=== PATIENT | female | born 1965 | race Caucasian/White ===

== ENCOUNTER 2018-08-10 18:55 | Emergency (ER) | payer OTHER ==
--- NOTE | 2018-08-10 21:47 | ER Document Report ---
ED Fall - General Chief Complaint: Head Injury Stated Complaint: FALL/HEAD INJURY Time Seen by Provider: 08/10/18 21:10 Primary Care Provider: ALDA HAMLIN MD [Primary Care Provider] - Follow up as needed Mode of Arrival: Ambulatory Information source: Patient Notes: 52-year-old female presented to ED for complaint of pain to the back of her head and neck. She states that she has a history of night terrors and 2 nights ago she fell out of the bed during the night Janae hitting her head on a coffee table. She states she does not know she had a loss of consciousness because she was asleep when she fell out of the bed and she woke up on the floor. She denies any nausea vomiting confusion or any change in ambulation or weakness. She states her is a prior EMT and he came home and checked her out and everything was okay at the time but she is continued to have increase in pain. She states she has a history of breast augmentation topping took bilateral tubal ligation and neck surgery for degenerative disc disease. She states she is on chronic pain management from [facility] of 50 mcg of fentanyl gabapentin she thinks is 300 mg a day methocarbamol and Klonopin. TRAVEL OUTSIDE OF THE [place] IN LAST 30 DAYS: No - HPI Occurred: Other - 2 nights ago Where: Home, Indoors Context: denies: Fell from standing - Fell out of bed during the night terror hit a coffee table at the bedside Associated symptoms: None Location of injury/pain: Head, Neck Quality of pain: Achy, Sharp Severity: Moderate Pain Level: 3 - Related data Allergies/Adverse Reactions: latex Adverse Reaction (Mild, Verified 03/14/16 12:18) ITCHING,SWELLING AT SITE OF CONTACT Past Medical History - General Information source: Patient - Social History Smoking Status: Current Every Day Smoker Cigarette use (# per day): Yes - 6 cigarettes a day Chew tobacco use (# tins/day): No Smoking Education Provided: Yes - 4 minutes Frequency of alcohol use: None Drug Abuse: None Occupation: Licensed professional counselor Lives with: Family Family History: Reviewed & Not Pertinent Patient has suicidal ideation: No Patient has homicidal ideation: No - Past Medical History Cardiac Medical History: Reports: Hx Hypertension - HX OF,CAME OFF MEDICATION OVER TIME PER PT. Pulmonary Medical History: Reports: Hx Pneumonia - CHILD EENT Medical History: Reports: None Neurological Medical History: Reports: None Endocrine Medical History: Reports: None Renal/ Medical History: Reports: None Malignancy Medical History: Reports: None GI Medical History: Reports: None Musculoskeletal Medical History: Reports Hx Arthritis, Reports Hx Fibromyalgia, Reports Other - Chronic pain management for fibromyalgia and degenerative disc Skin Medical History: Reports None Psychiatric Medical History: Reports: Other - Night terrors Traumatic Medical History: Reports: None Infectious Medical History: Reports: None Past Surgical History: Reports: Hx Abdominal Surgery - "Tummy tuck ", Hx Breast Surgery - Breast augmentation, Hx Hysterectomy, Hx Orthopedic Surgery - Cervical degenerative disc disease repair, Hx Tubal Ligation - Immunizations Hx Diphtheria, Pertussis, Tetanus Vaccination: No Review of Systems - Review of Systems Constitutional: No symptoms reported EENT: No symptoms reported Cardiovascular: No symptoms reported Respiratory: No symptoms reported Gastrointestinal: No symptoms reported Genitourinary: No symptoms reported Female Genitourinary: No symptoms reported Musculoskeletal: Muscle pain, Neck pain Skin: No symptoms reported Hematologic/Lymphatic: No symptoms reported Neurological/Psychological: Headaches -: Yes All other systems reviewed and negative Physical Exam - Vital signs Vitals: Temp Pulse Resp BP Pulse Ox 98.4 F 94 18 170/90 H 96 08/10/18 19:08 08/10/18 19:08 08/10/18 19:08 08/10/18 19:08 08/10/18 19:08 Interpretation: Normal - General General appearance: Appears well, Alert - HEENT Head: Normocephalic, Atraumatic Eyes: Normal Pupils: PERRL Ears: Normal External canal: Normal Tympanic membrane: Normal Sinus: Normal Nasal: Normal Mouth/Lips: Normal Mucous membranes: Normal Pharynx: Normal Neck: Normal - Respiratory Respiratory status: No respiratory distress Chest status: Nontender Breath sounds: Normal Chest palpation: Normal - Cardiovascular Rhythm: Regular Heart sounds: Normal auscultation Murmur: No - Abdominal Inspection: Normal Distension: No distension Bowel sounds: Normal Tenderness: Nontender Organomegaly: No organomegaly - Back Back: Normal, Tender, Other - Previous cervical surgery. No: Deformity/step- off, CVA tenderness - Extremities General upper extremity: Normal inspection, Nontender, Normal color, Normal ROM, Normal temperature General lower extremity: Normal inspection, Nontender, Normal color, Normal ROM, Normal temperature, Normal weight bearing. No: Mirela's sign - Neurological Neuro grossly intact: Yes Cognition: Normal Orientation: AAOx4 Mell Coma Scale Eye Opening: Spontaneous Colo Coma Scale Verbal: Oriented Colo Coma Scale Motor: Obeys Commands Colo Coma Scale Total: 15 Speech: Normal Motor strength normal: LUE, RUE, LLE, RLE Sensory: Normal - Psychological Associated symptoms: Normal affect, Normal mood - Skin Skin Temperature: Warm Skin Moisture: Dry Skin Color: Normal Course - Re-evaluation Re-evalutation: 08/10/18 22:08 Discussed history and physical with Dr. Wilson. He stated recommended the CT of the head and neck due to her history and exam. CT of head and neck were ordered. He recommended no new medication as she is already on 50 mcg of fentanyl, gabapentin 300, methocarbamol, and Klonopin. - Vital Signs Vital signs: Temp Pulse Resp BP Pulse Ox 97.8 F 70 18 154/89 H 99 08/10/18 23:08 08/10/18 23:08 08/10/18 19:08 08/10/18 23:08 08/10/18 23:08 - Diagnostic Test Radiology reviewed: Image reviewed, Reports reviewed Discharge - Discharge Clinical Impression: Fall from bed, initial encounter, Degenerative disc disease, cervical Head injury Qualifiers: Encounter type: initial encounter Qualified Code(s): S09.90XA - Unspecified injury of head, initial encounter Condition: Stable Disposition: HOME, SELF-CARE Additional Instructions: HEAD INJURY PRECAUTIONS: At this point, there is no evidence that your head injury is serious. Observation is necessary, however. Take only clear liquids for the first few hours, unless told otherwise by the doctor. If no pain medication was prescribed, you may take acetaminophen according to the directions on the bottle. Do not take any medication that may alter your level of alertness (unless you've discussed it with the doctor first). Limit activity for the first 24 hours. Bed rest is best. During the first 24 hours, check to see approximately every two to three hours that the patient is easily arousable, responds normally, and can perform common tasks such as walking without difficulty. Contact your doctor or go to the hospital if any of the following things occur: Persistent vomiting, difficulty in arousing the patient, worsening or continued headache, or failure to improve as expected. Head injuries can cause symptoms that persist for a few days or even a few weeks. NECK INJURY (CERVICAL STRAIN): You have a neck strain. This is an injury to the muscles and ligaments in the neck. There is no evidence of a fracture of the neck bones. Also, no injury to the spinal cord or nerve roots was detected. Usually, stiffness and pain INCREASE for the first 24-48 hours after the injury. The pain will gradually resolve and the neck will become more mobile. Most patients are back at work or school within a few days. Typically, complete healing takes about two or three weeks. The usual initial treatment is rest and cold packs. A neck collar may be placed to keep the muscles of the neck at rest. Antiinflammatory and muscle relaxing medication are often used to reduce the spasm and irritation. You should call the doctor, or go to the hospital, if you develop numbness or weakness in any extremity, problems with your bladder or bowel, or pain radiating down the arms. CONTUSION: Your injury has resulted in a contusion -- a crushing of the deep tissues. No injury to important structures was detected during the physician's exam. Contusions vary in the amount of pain they cause, and in the length of time required for healing. Typically, the area will become bruised, and will remain painful to touch for two or three weeks. However, most patients are back to working and playing within a few days. After the initial period of rest and cold-packs, your symptoms (together with the doctor's recommendations) will determine how rapidly you can get back to full activity. Usually this means "do what feels okay, but don't do things that hurt." If re-examination was recommended, it's important to follow up as instructed. Call the doctor or return any time if pain increases, if swelling becomes severe, if you develop numbness or weakness in an injured extremity, or if any other alarming symptoms occur. USE OF TYLENOL (ACETAMINOPHEN): Acetaminophen may be taken for pain relief or fever control. It's much safer than aspirin, offering a wider range of "safe" dosages. It is safe during . Some brand names are Tylenol, Panadol, Datril, Anacin 3, Tempra, and Liquiprin. Acetaminophen can be repeated every four hours. The following are maximum recommended dosages: WEIGHT Dose Drops Elixir Chewa ble(80mg) (LBS.) drprs=droppers tsp=teaspoon 6 40 mg 0.4 ml (1/2) 6-11 80 mg 0.8 ml (full) tsp 1 tab 12-16 120 mg 1 1/2 drprs 3/4 tsp 1 1/2 tabs 17-23 160 mg 2 drprs 1 tsp 2 tabs 24-30 240 mg 3 drprs 1 1/2 tsp 3 tabs 30-35 320 mg 2 tsp 4 tabs 36-41 360 mg 2 1/4 tsp 4 1/2 tabs 42-47 400 mg 2 1/2 tsp 5 tabs 48-53 480 mg 3 tsp 6 tabs 54-59 520 mg 3 1/4 tsp 6 1/2 tabs 60-64 560 mg 3 1/2 tsp 7 tabs 65-70 600 mg 3 3/4 tsp 7 1/2 tabs 71-76 640 mg 4 tsp 8 tabs 77-82 720 mg 4 1/2 tsp 9 tabs 83-88 800 mg 5 tsp 10 tabs >89 pounds or adults 650 mg to 900 mg Acetaminophen can be repeated every four hours. Maximum dose not to exceed 4000 mg a day. These maximum recommended dosages are slightly higher than the dosages written on the product container, but these dosages are very safe and below the toxic dosage for acetaminophen. ICE PACKS: Apply ice packs frequently against the painful area. Many different schedules are recommended, such as "20 minutes on, 20 minutes off" or "one hour ice, two hours rest." If you need to work, you may need to go longer between ice treatments. You should plan to have the area ice packed AT LEAST one fourth of the time. The ice should be applied over the wrap, tape, or splint, or over a layer of cloth -- not directly against the skin. Some ice bags have a built-in cloth and can be put directly on the skin. WARM PACKS: After approximately two days, apply gentle heat (such as a heating pad or hot water bottle) for about 20 to 30 minutes about every two hours -- at least four times daily. Warmth and elevation will help you make a more rapid recovery, and will ease the pain considerably. Do not use HOT heat, and never apply heat for longer than 30 minutes. The continuous heat can invisibly damage skin and muscles -- even when no burn is seen on the surface. Damaged muscles can make you MORE sore. You are already on chronic pain management. Please continue with your current chronic pain management medications. Please follow-up with your chronic pain management doctor. I have given you a written report of your CT of the head and neck. There are no acute changes on either CAT scan. FOLLOW-UP CARE: If you have been referred to a physician for follow-up care, call the physicians office for an appointment as you were instructed or within the next two days. If you experience worsening or a significant change in your symptoms, notify the physician immediately or return to the Emergency Department at any time for re-evaluation. Forms: Elevated Blood Pressure, Smoking Cessation Education, Return to Work Referrals: ALDA HAMLIN MD [Primary Care Provider] - Follow up as needed
--- NOTE | 2018-08-10 22:43 | RADIOLOGY REPORT (SQ) ---
EXAM DESCRIPTION: CT CERVICAL SPINE WITHOUT IV CONTRAST COMPLETED DATE/TME: 08/10/2018 21:47 CLINICAL HISTORY: 52 years, Female, Fall 2 days ago with continued pain to head and ne COMPARISON: 06/09/2015 CT TECHNIQUE: 212 Images stored on PACS. All CT scanners at this facility use dose modulation, iterative reconstruction, and/or weight based dosing when appropriate to reduce radiation dose to as low as reasonably achievable (ALARA). [facility]: Dose Right [facility]: CareDose [facility]: Dose Right [facility]: Teradose 4D [facility]: [employer] LIMITATIONS: None. FINDINGS: Evaluation of spinal canal contents limited due to CT technique. Vertebral body height is preserved. Equivocal anterolisthesis of C2 with respect to C3, C3 with respect to C4, C4 with respect to C5. Findings are likely developmental. Postsurgical changes with fixation plates and screws at C5-6 and C6-7. Associated artifact. Height and alignment is otherwise preserved. No CT evidence for acute fracture or subluxation. Joint soft tissues are grossly unremarkable. Facet arthropathy and degenerative changes with osteophytic spurring C3-4, C4-5. IMPRESSION: No CT evidence for acute C-spine abnormality. Stable postsurgical and degenerative changes. TECHNICAL DOCUMENTATION: Quality ID # 436: Final reports with documentation of one or more dose reduction techniques (e.g., Automated exposure control, adjustment of the mA and/or kV according to patient size, use of iterative reconstruction technique) copyright 2011 [employer]- All Rights Reserved
--- NOTE | 2018-08-10 22:44 | RADIOLOGY REPORT (SQ) ---
EXAM DESCRIPTION: CT HEAD WITHOUT IV CONTRAST COMPLETED DATE/TME: 08/10/2018 21:47 CLINICAL HISTORY: 52 years, Female, Fall 2 days ago with continued pain to head and ne COMPARISON: None. TECHNIQUE: 190 Images stored on PACS. All CT scanners at this facility use dose modulation, iterative reconstruction, and/or weight based dosing when appropriate to reduce radiation dose to as low as reasonably achievable (ALARA). [facility]: Dose Right [facility]: CareDose [facility]: Dose Right [facility]: Teradose 4D [facility]: [employer] LIMITATIONS: None. FINDINGS: The globes are intact. The paranasal sinuses and mastoid air cells are unremarkable. No displaced or depressed skull fracture. No intra or extra-axial hemorrhage. CT is limited for evaluation of acute infarct. No CT evidence for large or territorial acute infarct. No mass or midline shift IMPRESSION: Negative exam TECHNICAL DOCUMENTATION: Quality ID # 436: Final reports with documentation of one or more dose reduction techniques (e.g., Automated exposure control, adjustment of the mA and/or kV according to patient size, use of iterative reconstruction technique) copyright 2011 [employer]- All Rights Reserved
[2018-08-10 23:14] VITALS: BP 154/89
== END 2018-08-10 23:17 | disposition home or self-care (01) ==
LOC: ER 18:55
DX: S09.90XA Unspecified injury of head, initial encounter (principal); W06.XXXA Fall from bed, initial encounter; M50.30 Other cervical disc degeneration, unspecified cervical region; F17.210 Nicotine dependence, cigarettes, uncomplicated; I10 Essential (primary) hypertension
CPT/HCPCS: 70450; 72125; 99283; 99406

== ENCOUNTER 2018-11-09 18:24 | Emergency (ER) | payer OTHER ==
[2018-11-09] MEDS ORDERED: ACETAMINOPHEN 325 MG TABLET PO ONE (19:31)
--- NOTE | 2018-11-09 19:33 | ER Document Report ---
ED Medical Screen (RME) - General Chief Complaint: Headache Stated Complaint: HEADACHE Time Seen by Provider: 11/09/18 19:25 Primary Care Provider: ALDA HAMLIN MD [Primary Care Provider] - Follow up as needed TRAVEL OUTSIDE OF THE [place] IN LAST 30 DAYS: No - HPI Notes: 11/09/18 19:31 Patient is a 53-year-old female with a history of chronic back pain, anxiety/depression, tummy tuck who presents to the emergency department complaining of frontal headache over the past few days in the setting of nasal congestion/discharge, dry cough, and epigastric pain. Patient states that her illness began 2 to 3 weeks ago and she was given penicillin at that time which seem to help, but her symptoms continued. Patient states that she still does have nasal congestion/discharge, but it is decreased from previous. She is eating and drinking without difficulty. She is urinating normally. She does take fentanyl for her chronic pain and is also on Klonopin. Denies injury, current fever, neck pain, URI, CP, SOB, n/v/d, or rash. I have treated and performed a rapid initial assessment of this patient. A comprehensive ED assessment and evaluation of the patient, analysis of test results and completion of medical decision making process will be conducted by additional ED providers. PHYSICAL EXAMINATION: GENERAL: Well-appearing, well-nourished and in no acute distress. A&Ox4. Answers questions appropriately. LUNGS: Breath sounds clear to auscultation bilaterally and equal. No wheezes rales or rhonchi. HEART: Regular rate and rhythm without murmurs, rubs, gallops. ABDOMEN: Soft, nondistended abdomen. No guarding, no rebound. Normal bowel sounds present. No CVA tenderness bilaterally. + mild epigastric tenderness (cannot elicit thorough abd exam w/o table, however). Extremities: No cyanosis, clubbing, or edema b/l. NEUROLOGICAL: Normal speech, normal gait. PSYCH: Normal mood, normal affect. - Related Data Allergies/Adverse Reactions: latex Adverse Reaction (Mild, Verified 11/09/18 18:30) ITCHING,SWELLING AT SITE OF CONTACT Past Medical History - Past Medical History Cardiac Medical History: Reports: Hx Hypertension - HX OF,CAME OFF MEDICATION OVER TIME PER PT. Denies: Hx Coronary Artery Disease, Hx Heart Attack Pulmonary Medical History: Reports: Hx Pneumonia - CHILD Denies: Hx Asthma, Hx Bronchitis, Hx COPD Neurological Medical History: Denies: Hx Cerebrovascular Accident, Hx Seizures Renal/ Medical History: Denies: Hx Peritoneal Dialysis Musculoskeltal Medical History: Reports Hx Arthritis, Reports Hx Fibromyalgia Past Surgical History: Reports: Hx Abdominal Surgery - "Tummy tuck ", Hx Breast Surgery - Breast augmentation, Hx Hysterectomy, Hx Orthopedic Surgery - Cervical degenerative disc disease repair, Hx Tubal Ligation - Immunizations Hx Diphtheria, Pertussis, Tetanus Vaccination: No Doctor's Discharge - Discharge Referrals: ALDA HAMLIN MD [Primary Care Provider] - Follow up as needed
--- NOTE | 2018-11-09 20:02 | RADIOLOGY REPORT (SQ) ---
EXAM DESCRIPTION: CHEST 2 VIEWS COMPLETED DATE/TIME: 11/09/2018 7:47 pm REASON FOR STUDY: cough COMPARISON: None. EXAM PARAMETERS: NUMBER OF VIEWS: two views TECHNIQUE: Digital Frontal and Lateral radiographic views of the chest acquired. RADIATION DOSE: NA LIMITATIONS: none FINDINGS: LUNGS AND PLEURA: No opacities, masses or pneumothorax. No pleural effusion. MEDIASTINUM AND HILAR STRUCTURES: No masses or contour abnormalities. HEART AND VASCULAR STRUCTURES: Heart normal size. No evidence for failure. BONES: No acute findings. HARDWARE: None in the chest. OTHER: No other significant finding. IMPRESSION: NO ACUTE RADIOGRAPHIC FINDING IN THE CHEST. TECHNICAL DOCUMENTATION: JOB ID: [id number] [place]-72 2010 [email or web address]- All Rights Reserved Reading location - IP/workstation name: [email or web address]
[2018-11-09 20:10] LABS: ABSOLUTE BASOPHILS # (AUTO) 0.1 10^3/uL (0.0-0.2); ABSOLUTE LYMPHOCYTES (AUTO) 3.1 10^3/uL (0.5-4.7); ABSOLUTE MONOCYTES (AUTO) 0.5 10^3/uL (0.1-1.4); ABSOLUTE NEUT (AUTO) 6.5 10^3/uL (1.7-8.2); BASOPHILS % (AUTO) 0.5 % (0-2); EOSINOPHILS % (AUTO) 0.5 % (0-6); HEMATOCRIT 47.2 % (36.0-47.0); HEMOGLOBIN 16.1 g/dL (12.0-15.5); LYMPHOCYTES % (AUTO) 30.4 % (13-45); MEAN CORPUSCULAR HEMOGLOBIN 28.1 pg (27.0-33.4); MEAN CORPUSCULAR VOLUME 83 fl (80-97); PLATELET COUNT 281 10^3/uL (150-450); RED BLOOD COUNT 5.71 10^6/uL (3.72-5.28); RED CELL DISTRIBUTION WIDTH 14.3 % (11.5-14.0); SEGMENTED NEUTROPHILS % (AUTO) 63.6 % (42-78); TOTAL CELLS COUNTED % (AUTO) 100 %; WHITE BLOOD COUNT 10.3 10^3/uL (4.0-10.5)
[2018-11-09 20:17] LABS: APPEARANCE,URINE SLIGHTLY-CLOUDY; BILIRUBIN,URINE NEGATIVE (NEGATIVE); COLOR,URINE YELLOW; GLUCOSE, URINE NEGATIVE (NEGATIVE); KETONES,URINE NEGATIVE (NEGATIVE); LEUKOCYTE ESTERASE,URINE NEGATIVE (NEGATIVE); NITRITE,URINE NEGATIVE (NEGATIVE); PROTEIN,URINE NEGATIVE (NEGATIVE); URINE SPECIFIC GRAVITY 1.021; UROBILINOGEN,URINE NEGATIVE mg/dL (<2.0)
[2018-11-09 20:26] LABS: ALANINE AMINOTRANSFERASE 34 U/L (9-52); ALBUMIN 4.6 g/dL (3.5-5.0); ALKALINE PHOSPHATASE 109 U/L (38-126); ANION GAP 12 (5-19); ASPARTATE AMINO TRANSFERASE 22 U/L (14-36); BILIRUBIN,DIRECT 0.3 mg/dL (0.0-0.4); BILIRUBIN,TOTAL 0.4 mg/dL (0.2-1.3); BLOOD UREA NITROGEN 17 mg/dL (7-20); CALCIUM 10.2 mg/dL (8.4-10.2); CARBON DIOXIDE 23 mmol/L (22-30); CHLORIDE 108 mmol/L (98-107); GLUCOSE 101 mg/dL (75-110); LIPASE 43.5 U/L (23-300); SODIUM 143.1 mmol/L (137-145); TOTAL PROTEIN 7.7 g/dL (6.3-8.2)
[2018-11-09] MEDS ORDERED: AMOXICILLIN TR/POT CLAVULANATE 500-125 MG TAB PO ONE (22:57)
--- NOTE | 2018-11-09 22:59 | ER Document Report ---
ED General - General Chief Complaint: Headache Stated Complaint: HEADACHE Time Seen by Provider: 11/09/18 19:25 Notes: Patient is a 53-year-old female presents with complaint of pressure over her frontal sinuses, congestion, intermittent fevers for several weeks. She says she initially took some penicillin which started to improve her symptoms but then came back. She denies history of seasonal allergies. No vomiting. No diarrhea. No difficulty breathing. No other complaints at this time. TRAVEL OUTSIDE OF THE [place] IN LAST 30 DAYS: No - Related Data Allergies/Adverse Reactions: latex Adverse Reaction (Mild, Verified 11/09/18 18:30) ITCHING,SWELLING AT SITE OF CONTACT Past Medical History - Social History Smoking Status: Never Smoker Chew tobacco use (# tins/day): No Frequency of alcohol use: None Drug Abuse: None Family History: Reviewed & Not Pertinent Patient has suicidal ideation: No Patient has homicidal ideation: No - Past Medical History Cardiac Medical History: Reports: Hx Hypertension - HX OF,CAME OFF MEDICATION OVER TIME PER PT. Denies: Hx Coronary Artery Disease, Hx Heart Attack Pulmonary Medical History: Reports: Hx Pneumonia - CHILD Denies: Hx Asthma, Hx Bronchitis, Hx COPD Neurological Medical History: Denies: Hx Cerebrovascular Accident, Hx Seizures Renal/ Medical History: Denies: Hx Peritoneal Dialysis Musculoskeletal Medical History: Reports Hx Arthritis, Reports Hx Fibromyalgia Past Surgical History: Reports: Hx Abdominal Surgery - "Tummy tuck ", Hx Breast Surgery - Breast augmentation, Hx Hysterectomy, Hx Orthopedic Surgery - Cervical degenerative disc disease repair, Hx Tubal Ligation - Immunizations Hx Diphtheria, Pertussis, Tetanus Vaccination: No Review of Systems - Review of Systems Notes: My Normal Review Basic REVIEW OF SYSTEMS: CONSTITUTIONAL : Denies fever, chills, or sweats. Denies recent illness. EENT: congestion and sinus pressure CARDIOVASCULAR: Denies chest pain. RESPIRATORY: Dry cough. Denies shortness of breath, difficulty breathing, or wheezing. GASTROINTESTINAL: Denies abdominal pain. Denies nausea, vomiting, or diarrhea. MUSCULOSKELETAL: Denies neck or back pain or joint pain or swelling. SKIN: Denies rash or skin lesions. NEUROLOGICAL: Denies altered mental status or loss of consciousness. Frontal headache. Denies weakness or paralysis or loss of use of either side. Denies problems with gait or speech. Denies sensory or motor loss. ALL OTHER SYSTEMS REVIEWED AND NEGATIVE. Physical Exam - Notes Notes: General Appearance: Well nourished, alert, cooperative, no acute distress, no obvious discomfort. Amount of audible congestion on exam. Vitals: reviewed, See vital signs table. Head: no swelling or tenderness to the head. Pressure over frontal sinuses Eyes: PERRL, EOMI, Conjuctiva clear Mouth: No decreasd moisture Throat: No tonsillar inflammation, No airway obstruction, No lymphadenopathy Neck: Supple, no neck tenderness, No neck swelling Lungs: No wheezing, No rales, No rhonci, No accessory muscle use, good air exchange bilaterally. Heart: Normal rate, Regular rythm, No murmur, no rub Abdomen: Normal BS, soft, No rigidity, No abdominal tenderness, No guarding, no rebound Extremities: strength 5/5 in all extremities, good pulses in all extremities, no edema. Skin: warm, dry, appropriate color, no rash Neuro: speech clear, oriented x 3, normal affect, responds appropriately to questions. Cranial nerves II through XII are intact. Patient moves all extremities without difficulty. No focal neurologic deficits on exam. Course - Re-evaluation Re-evalutation: 11/10/18 04:55 Suspect patient has sinusitis based on recurrent fevers and sinus pressure over the frontal sinuses for last 1 to [address] her on Augmentin. I encouraged her to also take dkas-imm-wvcvykd allergy medicine as we have had a high pollen count the spring and this could also be contributing to her congestion and pressure. I encouraged her to follow-up with a doctor in 1 week for reevaluation. She is to return to the ER if she has worsening of her symptoms. Patient agrees with plan will be discharged home. Dictation of this chart was performed using voice recognition software; therefore, there may be some unintended grammatical errors. - Laboratory Result Diagrams: 11/09/18 19:45 11/09/18 19:45 Laboratory results interpreted by me: 11/09/18 11/09/18 19:45 19:45 RBC 5.71 H Hgb 16.1 H Hct 47.2 H RDW 14.3 H Chloride 108 H Discharge - Discharge Clinical Impression: Sinusitis Qualifiers: Sinusitis location: unspecified location Chronicity: subacute Qualified Code(s): J01.90 - Acute sinusitis, unspecified URI (upper respiratory infection) Qualifiers: URI type: unspecified URI Qualified Code(s): J06.9 - Acute upper respiratory infection, unspecified Condition: Good Disposition: HOME, SELF-CARE Additional Instructions: Please take an epub-jur-wezbzof allergy medicine such as Ruth or Claritin. Please take the antibiotic as prescribed. This will help treat potential sinusitis. Please take Tylenol for pain. Please return to the ER or follow-up with your doctor in 1 week for reevaluation if your symptoms are not improving after being on the antibiotic. Please return to ER immediately if you have high fevers, vomiting, difficulty breathing, or feel that you are worsening in any way. Prescriptions: Amox Tr/Potassium Clavulanate [Augmentin 613-989 Tablet] 1 tab PO BID 7 Days tablet Forms: Return to Work
== END 2018-11-09 23:18 | disposition home or self-care (01) ==
LOC: ER 18:24
DX: J01.90 Acute sinusitis, unspecified (principal); J06.9 Acute upper respiratory infection, unspecified; I10 Essential (primary) hypertension
CPT/HCPCS: 36415; 71046; 80053; 81001; 83690; 85025; 99284

== ENCOUNTER 2020-01-16 15:12 | Emergency (ER) | payer OTHER ==
[2020-01-16] MEDS ORDERED: NORMAL SALINE 1000 ML 1,000 ML IV PRN (15:32)
[2020-01-16 16:22] LABS: ABSOLUTE BASOPHILS # (AUTO) 0.1 10^3/uL (0.0-0.2); ABSOLUTE EOSINOPHILS # (AUTO) 0.1 10^3/uL (0.0-0.6); ABSOLUTE LYMPHOCYTES (AUTO) 3.3 10^3/uL (0.5-4.7); ABSOLUTE MONOCYTES (AUTO) 0.5 10^3/uL (0.1-1.4); ABSOLUTE NEUT (AUTO) 4.5 10^3/uL (1.7-8.2); BASOPHILS % (AUTO) 0.8 % (0-2); EOSINOPHILS % (AUTO) 1.6 % (0-6); HEMOGLOBIN 15.8 g/dL (12.0-15.5); LYMPHOCYTES % (AUTO) 39.1 % (13-45); MEAN CORPUSCULAR HEMOGLOBIN 29.2 pg (27.0-33.4); MEAN CORPUSCULAR HGB CONC 33.7 g/dL (32.0-36.0); MEAN CORPUSCULAR VOLUME 87 fl (80-97); MONOCYTES % (AUTO) 5.6 % (3-13); PLATELET COUNT 221 10^3/uL (150-450); RED BLOOD COUNT 5.42 10^6/uL (3.72-5.28); RED CELL DISTRIBUTION WIDTH 13.7 % (11.5-14.0); SEGMENTED NEUTROPHILS % (AUTO) 52.9 % (42-78); TOTAL CELLS COUNTED % (AUTO) 100 %; WHITE BLOOD COUNT 8.5 10^3/uL (4.0-10.5)
[2020-01-16 16:41] LABS: ALBUMIN 4.5 g/dL (3.5-5.0); ALKALINE PHOSPHATASE 90 U/L (38-126); ANION GAP 7 (5-19); ASPARTATE AMINO TRANSFERASE 23 U/L (14-36); BILIRUBIN,TOTAL 0.6 mg/dL (0.2-1.3); BLOOD UREA NITROGEN 26 mg/dL (7-20); CALCIUM 9.6 mg/dL (8.4-10.2); CARBON DIOXIDE 22 mmol/L (22-30); CHLORIDE 109 mmol/L (98-107); GLUCOSE 100 mg/dL (75-110); TOTAL PROTEIN 7.2 g/dL (6.3-8.2)
--- NOTE | 2020-01-16 17:31 | RADIOLOGY REPORT (SQ) ---
EXAM DESCRIPTION: CT ABD/PELVIS WITH IV ONLY IMAGES COMPLETED DATE/TIME: 01/16/2020 4:15 pm REASON FOR STUDY: llq pain' . Diffuse abdominal pain. Prior appendectomy, hysterectomy, cholecyst ectomy. COMPARISON: None. TECHNIQUE: CT scan of the abdomen and pelvis performed using helical scanning technique with dynamic intravenous contrast injection. No oral contrast. Images reviewed with lung, soft tissue, and bone windows. Reconstructed coronal and sagittal MPR images reviewed. Delayed images for evaluation of the urinary system also acquired. All images stored on PACS. All CT scanners at this facility use dose modulation, iterative reconstruction, and/or weight based d osing when appropriate to reduce radiation dose to as low as reasonably achievable (ALARA). [facility]: Dose Right [facility]: CareDose [facility]: Dose Right [facility]: Teradose 4D [facility]: Oxsensis CONTRAST TYPE AND DOSE: contrast/concentration: Isovue 350.00 mmol/ml; Total Contrast Delivered: 99. 0 ml; Total Saline Delivered: 71.0 ml RENAL FUNCTION: GFR > 60. RADIATION DOSE: CT Rad equipment meets quality standard of care and radiation dose reduction techniq ues were employed. CTDIvol: 10.6 - 14.6 mGy. DLP: 1365 mGy-cm.. LIMITATIONS: None. FINDINGS: LOWER CHEST: No significant findings. No nodules or infiltrates. LIVER: The liver has normal size and contour. Background mild hepatic steatosis. There are several circumscribed hypodense lesions within the right and left hepatic lobes, demonstrating no significant enhancement on delayed images, consistent with benign hepatic cysts. No suspicious hepatic mass. H epatic and portal veins are patent. No biliary ductal dilation. SPLEEN: Normal size. No focal lesions. PANCREAS: No masses. No significant calcifications. No adjacent inflammation or peripancreatic fluid collections. Pancreatic duct not dilated. GALLBLADDER: Surgically absent. ADRENAL GLANDS: No significant masses or asymmetry. RIGHT KIDNEY AND URETER: No solid masses. No significant calcifications. No hydronephrosis or hyd roureter. LEFT KIDNEY AND URETER: No solid masses. 5 mm nonobstructing left inferior pole renal calculus. No obstructing renal or ureteral calculus. No hydronephrosis. No perinephric fluid. Ureter has jose e l caliber and appearance. AORTA AND VESSELS: No aneurysm. No dissection. Renal arteries, SMA, celiac without stenosis. RETROPERITONEUM: No retroperitoneal adenopathy, hemorrhage or masses. BOWEL AND PERITONEAL CAVITY: There is colonic diverticulosis without evidence of diverticulitis. No bowel obstruction. No bowel wall thickening. No significant inflammatory change. APPENDIX: Surgically absent. PELVIS: Post hysterectomy. Small left ovary or left seroma, insignificant. Calcified pelvic phlebol iths. Urinary bladder has normal contour. No adnexal mass. ABDOMINAL WALL: No masses. No hernias. BONES: No significant or acute findings. OTHER: No other significant finding. IMPRESSION: 1. No acute abnormality in the abdomen or pelvis to explain the patient's symptoms. 2. Colonic diverticulosis without evidence of diverticulitis. 3. Mild hepatic steatosis. Hepatic cysts. 4. 5 mm nonobstructing left renal calculus. No hydronephrosis. No obstructing renal or ureteral joey culi. TECHNICAL DOCUMENTATION: JOB ID: [id number] Quality ID # [id number]: Final reports with documentation of one or more dose reduction techniques (e.g., Au tomated exposure control, adjustment of the mA and/or kV according to patient size, use of iterative reconstruction technique) 2010 [employer]- All Rights Reserved Reading location - IP/workstation name: [email or web address]
--- NOTE | 2020-01-16 18:15 | ER Document Report ---
ED General - General Chief Complaint: Bloody Stools Stated Complaint: ABDOMINAL PAIN,BLOOD IN STOOL Time Seen by Provider: 01/16/20 15:29 Primary Care Provider: NILAM HAMLIN NP [Primary Care Provider] - Follow up as needed Notes: HPI: Patient is a 54-year-old female with past medical history as recorded presents today with 1 bowel movement with some blood noticed this morning. No bowel movement last evening and no bowel movement since that time. She did states some crampy left lower quadrant intermittent abdominal discomfort with no radiation. No aggravating relieving factors. No nausea, vomiting, fevers, or dysuria. Patient states she does have a history of internal hemorrhoids. Her last colonoscopy was around 5 years ago. She denies any lightheadedness or dizziness. ROS: See HPI All other review of systems reviewed and otherwise negative Reviewed vital signs and nursing note as charted by RN. PHYSICAL EXAM: CONSTITUTIONAL: Alert and oriented and responds appropriately to questions. Wel l-appearing; well-nourished HEAD: Normocephalic; atraumatic EYES: PERRL; sclerae non-icteric ENT: Normal nose; no rhinorrhea; moist mucous membranes; pharynx without lesions noted NECK: Supple without meningismus; non-tender; no cervical lymphadenopathy, no masses CARD: Regular rate and rhythm; no murmurs; symmetric distal pulses RESP: Normal chest excursion without splinting or tachypnea; breath sounds clear and equal bilaterally ABD: Normal bowel sounds; non-distended; soft, nontender to deep palpation of all 4 quadrants of the abdomen GI: With electric locomotive crane operator present I did perform a digital rectal examination. Some external nonthrombosed hemorrhoids. No gross blood. Very minimally positive Hemoccult stool BACK: The back appears normal and is non-tender to palpation EXT: Normal ROM in all joints; non-tender to palpation; no edema SKIN: No acute lesions noted NEURO: CN 2-12 intact; 5/5 bilateral upper and lower extremity strength with sensation intact to light touch PSYCH: The patient's mood and manner are appropriate. Grooming and personal hygiene are appropriate. TRAVEL OUTSIDE OF THE [place] IN LAST 30 DAYS: No - Related Data Allergies/Adverse Reactions: latex Adverse Reaction (Mild, Verified 01/16/20 15:52) ITCHING,SWELLING AT SITE OF CONTACT Past Medical History - Social History Smoking Status: Current Every Day Smoker Frequency of alcohol use: None Drug Abuse: None Family History: Reviewed & Not Pertinent Patient has homicidal ideation: No - Past Medical History Cardiac Medical History: Reports: Hx Hypertension Denies: Hx Coronary Artery Disease, Hx Heart Attack Pulmonary Medical History: Reports: Hx Pneumonia Denies: Hx Asthma, Hx Bronchitis, Hx COPD Neurological Medical History: Denies: Hx Cerebrovascular Accident, Hx Seizures Renal/ Medical History: Denies: Hx Peritoneal Dialysis Musculoskeletal Medical History: Reports Hx Arthritis, Reports Hx Fibromyalgia Past Surgical History: Reports: Hx Abdominal Surgery - "Tummy tuck ", Hx Breast Surgery - Breast augmentation, Hx Cholecystectomy - 2019, Hx Hysterectomy, Hx Orthopedic Surgery - Cervical degenerative disc disease repair, Hx Tubal Ligation - Immunizations Hx Diphtheria, Pertussis, Tetanus Vaccination: No Physical Exam - Vital signs Vitals: Temp Pulse Resp BP Pulse Ox 98.8 F 102 H 20 154/90 H 98 01/16/20 15:17 01/16/20 15:17 01/16/20 15:17 01/16/20 15:17 01/16/20 15:17 Course - Re-evaluation Re-evalutation: Given the history and physical examination, currently pain-free, vital signs as recorded, 1 bowel movement at 8 AM with no bowel movement subsequently, I will obtain a hemoglobin level, and basic labs, CT scan was ordered in triage. I would like to evaluate for the possibility of diverticulitis. I do believe with only 1 bowel movement earlier today with some external thrombosed hemorrhoids, with a history of internal hemorrhoids, an acute concerning GI bleed to be unlik jacobo. 01/16/20 18:13 Hemoglobin as recorded. No repeat bowel movements. Still pain-free. CT scan of the abdomen and pelvis as recorded. Given the above history and physical, with the above information, I believe it is reasonable to discharge the patient home at this time with strict return precautions and follow-up with a white goods appliance tech. Patient and are in agreement. - Vital Signs Vital signs: Temp Pulse Resp BP Pulse Ox 98.8 F 102 H 20 154/90 H 98 01/16/20 15:29 01/16/20 15:17 01/16/20 15:17 01/16/20 15:17 01/16/20 15:17 - Laboratory Result Diagrams: 01/16/20 16:08 01/16/20 16:08 Laboratory results interpreted by me: 01/16/20 01/16/20 16:08 16:08 RBC 5.42 H Hgb 15.8 H Chloride 109 H BUN 26 H Discharge - Discharge Clinical Impression: Blood in stool, Left lower quadrant abdominal pain Condition: Good Disposition: HOME, SELF-CARE Additional Instructions: Come back immediately for any increased pain, return of pain, the location of pain, repeat blood in the bowel movement, lightheadedness or dizziness, fevers, or any other acute problems. Please follow-up with the primary care physician and white goods appliance tech as we have provided. Referrals: NILAM HAMLIN NP [Primary Care Provider] - Follow up as needed MICHAEL VAZQUEZ MD [ACTIVE STAFF] - Follow up as needed
[2020-01-16 19:18] LABS: APPEARANCE,URINE CLEAR; BILIRUBIN,URINE NEGATIVE (NEGATIVE); COLOR,URINE STRAW; GLUCOSE, URINE NEGATIVE (NEGATIVE); KETONES,URINE NEGATIVE (NEGATIVE); LEUKOCYTE ESTERASE,URINE NEGATIVE (NEGATIVE); NITRITE,URINE NEGATIVE (NEGATIVE); PROTEIN,URINE NEGATIVE (NEGATIVE); UROBILINOGEN,URINE NEGATIVE mg/dL (<2.0)
[2020-01-16 19:25] VITALS: BP 130/67
[2020-01-16 19:30] LABS: URINE SPECIFIC GRAVITY > 1.060
== END 2020-01-16 19:26 | disposition home or self-care (01) ==
LOC: ER 15:12
DX: R19.5 Other fecal abnormalities (principal); R10.32 Left lower quadrant pain; I10 Essential (primary) hypertension
CPT/HCPCS: 99284; 96360; 36415; 83690; 85025; 80053; 81001; 84484; 74177; J7030

== ENCOUNTER 2020-02-28 07:15 | Day surgery (SDC) | payer OTHER ==
[2020-02-28] MEDS ORDERED: PROPOFOL INJ 200 MG/20 ML VIAL IV ONE (07:28)
--- NOTE | 2020-02-28 09:04 | Operative Report ---
Operative Report DATE OF SURGERY: 02/28/20 Operative Report: Risks benefits and alternatives of the procedure including risk of bleeding, perforation requiring surgery have been explained to the patient in detail and informed consent has been obtained. Patient is placed in a left, lateral decubital position. Timeout was called. Propofol medication is administered. Rectal examination is done which did not reveal any masses, tears or fissures. An Olympus videoscope was introduced into the patient's rectum. Scope was then carefully advanced all the way to the cecum. The cecum was identified by the usual anatomical landmarks including the ileocecal valve as well as the appendiceal office. Photodocumentation is obtained. Scope was then sequentially pulled back via the various segments of the colon including the ascending colon, hepatic flexure, transverse colon, splenic flexure, descending colon and finally into the rectosigmoid portions of the colon. Retroflexion maneuver is performed. PREOPERATIVE DIAGNOSIS: Blood in stool POSTOPERATIVE DIAGNOSIS: Internal and external hemorrhoids. Diverticulosis without any evidence of diverticulitis. Rectosigmoid colon polyp removed via biopsy forceps. Right hand colon inflammation status post biopsy rule out collagenous colitis OPERATION: Colonoscopy with biopsy SURGEON: MICHAEL VAZQUEZ ANESTHESIA: LMAC TISSUE REMOVED OR ALTERED: As noted above COMPLICATIONS: None. ESTIMATED BLOOD LOSS: None. INTRAOPERATIVE FINDINGS: As noted above PROCEDURE: Patient tolerated the procedure well. No immediate postprocedure complications are noted. Patient is discharged in good condition. Discharge date 02/28/2020. Discharge diet: Regular. Discharge activity: Regular. 2 to 3-week follow-up to discuss findings. Patient is instructed call the office or proceed to the emergency room should there be any further plans questions. Wait on the pathology. May need 5-year surveillance colonoscopy
[2020-02-28 09:42] VITALS: BP 119/80
== END 2020-02-28 10:05 | disposition home or self-care (01) ==
LOC: END 07:15
PROVIDERS: ATTEND Internal Medicine Gastroenterology
DX: K57.30 Diverticulosis of large intestine without perforation or abscess without bleeding (principal); K52.9 Noninfective gastroenteritis and colitis, unspecified; K63.5 Polyp of colon; K64.8 Other hemorrhoids; K64.4 Residual hemorrhoidal skin tags; F41.9 Anxiety disorder, unspecified; F32.9 Major depressive disorder, single episode, unspecified; Z83.79 Family history of other diseases of the digestive system; Z90.49 Acquired absence of other specified parts of digestive tract; Z98.51 Tubal ligation status; Z90.710 Acquired absence of both cervix and uterus; Z78.0 Asymptomatic menopausal state; Z79.899 Other long term (current) drug therapy
CPT/HCPCS: 45380; 88305 ×2; 00811; J2704; 811

== ENCOUNTER 2020-04-15 18:43 | Emergency (ER) | payer OTHER ==
[2020-04-15] MEDS ORDERED: ONDANSETRON 4 MG TAB.RAPDIS PO ONE (19:04)
[2020-04-15] MEDS ORDERED: DIPHENHYDRAMINE HCL 25 MG CAPSULE PO ONE (19:04)
[2020-04-15] MEDS ORDERED: KETOROLAC TROMETHAMINE 60 MG/2 ML SDV IM ONE (19:04)
--- NOTE | 2020-04-15 19:12 | ER Document Report ---
ED Medical Screen (RME) - General Chief Complaint: Suicidal Ideation Stated Complaint: PSYCH EVAL Time Seen by Provider: 04/15/20 18:55 Primary Care Provider: NILAM HAMLIN NP [Primary Care Provider] - Follow up as needed Mode of Arrival: Ambulatory Information source: Patient Notes: HPI; 54-year-old female presents to the emergency room with a suicidal ideation. States she is been having severe migraines and has had minimal sleep due to her migraines. States she had an MRI last week but has not received the results yet. States she was started on a new migraine medicine last week which is helping a little bit with the migraines. States she is only sleeping for 15 minutes at a time. Is feeling very overwhelmed at work. 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 States she did attempt suicide in 2005 with a drug overdose. Patient states she was planning on overdosing today felt that "it would be better for just go to sleep and not wake up". States her children are grown and she does not have a local support system. Patient did bring herself to the emergency room today. She is hypertensive, tachycardic, and is complaining of a severe migraine. PE: Alert and oriented x3. She has a flat affect but answers to questions appropriately. She does admit to suicidal ideation denies homicidal ideation. Charge nurse notified patient was taken directly to room. I have greeted and performed a rapid initial assessment of this patient. A comprehensive ED assessment and evaluation of the patient, analysis of test r esults and completion of the medical decision making process will be conducted by additional ED providers. I have specifically instructed the patient or family members with the patient to immediately return to any nursing staff should anything change in the patient's condition or with their chief complaint. TRAVEL OUTSIDE OF THE [place] IN LAST 30 DAYS: No - Related Data Allergies/Adverse Reactions: latex Adverse Reaction (Mild, Verified 04/15/20 18:53) ITCHING,SWELLING AT SITE OF CONTACT Past Medical History - Past Medical History Cardiac Medical History: Reports: Hx Hypertension Denies: Hx Coronary Artery Disease, Hx Heart Attack Pulmonary Medical History: Reports: Hx Pneumonia Denies: Hx Asthma, Hx Bronchitis, Hx COPD Neurological Medical History: Denies: Hx Cerebrovascular Accident, Hx Seizures Renal/ Medical History: Denies: Hx Peritoneal Dialysis Musculoskeltal Medical History: Reports Hx Arthritis, Reports Hx Fibromyalgia Past Surgical History: Reports: Hx Abdominal Surgery - "Tummy tuck ", Hx Breast Surgery - Breast augmentation, Hx Cholecystectomy - 2020, Hx Hysterectomy, Hx Orthopedic Surgery - Cervical degenerative disc disease repair, Hx Tubal Ligation - Immunizations Hx Diphtheria, Pertussis, Tetanus Vaccination: No Physical Exam - Vital signs Vitals: Temp Pulse Resp BP Pulse Ox 98.1 F 118 H 18 182/117 H 97 04/15/20 18:48 04/15/20 18:48 04/15/20 18:48 04/15/20 18:48 04/15/20 18:48 Course - Vital Signs Vital signs: Temp Pulse Resp BP Pulse Ox 98.1 F 118 H 18 182/117 H 97 04/15/20 18:48 04/15/20 18:48 04/15/20 18:48 04/15/20 18:48 04/15/20 18:48 Doctor's Discharge - Discharge Referrals: NILAM HAMLIN NP [Primary Care Provider] - Follow up as needed
[2020-04-15] MEDS ORDERED: LORAZEPAM 1 MG TABLET PO ONE (19:18)
--- NOTE | 2020-04-15 19:39 | ER Document Report ---
ED Psych Disorder / Suicide - General Mode of Arrival: Ambulatory TRAVEL OUTSIDE OF THE [place] IN LAST 30 DAYS: No <SIOBHAN ROCKWELL - Last Filed: 04/15/20 19:55> <JEROD HOLLIS - Last Filed: 04/15/20 22:24> - General Stated Complaint: PSYCH EVAL Time Seen by Provider: 04/15/20 18:55 Primary Care Provider: NILAM HAMLIN NP [Primary Care Provider] - Follow up as needed - HPI Notes: 54 yr old female with a history of headaches, migraines presents emergency room for thoughts of wanting to kill herself because she cannot take it anymore. 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 Patient does not have an exact plan. Is not ingested any pills, has not taken any illicit drugs or harmed herself. Patient did not take her p.m. dose of lisinopril for her blood pressure. Denies any blurred vision double vision loss of vision, chest pain, shortness of breath, nausea vomiting diarrhea, numbness or tingling down bilateral arms or legs. Denies any homicidal ideation. MEDICATIONS: I agree with the patient medications as charted by the RN. ALLERGIES: I agree with the allergies as charted by the RN. PAST MEDICAL HISTORY/PAST SURGICAL HISTORY: Reviewed and agree as charted by RN. SOCIAL HISTORY: Reviewed and agree as charted by RN. FAMILY HISTORY: No significant familial comorbid conditions directly related to patient complaint EXAM: Reviewed vital signs as charted by RN. REVIEW OF SYSTEMS:reviewed vital signs by RN CONSTITUTIONAL : Denies fever, chills, or sweats. Denies recent illness. EENT: Denies eye, ear, throat, or mouth pain or symptoms. Denies nasal or sinus congestion or discharge. Denies throat, tongue, or mouth swelling or difficulty swallowing. CARDIOVASCULAR: Denies chest pain. Denies palpitations or racing or irregular heart beat. Denies ankle edema. RESPIRATORY: Denies cough, cold, or chest congestion. Denies shortness of breath, difficulty breathing, or wheezing. GASTROINTESTINAL: Denies abdominal pain or distention. Denies nausea, vomiting, or diarrhea. Denies blood in vomitus, stools, or per rectum. Denies black, tarry stools. Denies constipation. GENITOURINARY: Denies difficulty urinating, painful urination, burning, frequency, blood in urine, or discharge. FEMALE GENITOURINARY: Denies vaginal bleeding, heavy or abnormal periods, irregular periods. Denies vaginal discharge or odor. MUSCULOSKELETAL: Denies back or neck pain or stiffness. Denies joint pain or swelling. SKIN: Denies rash, lesions or sores. HEMATOLOGIC : Denies easy bruising or bleeding. LYMPHATIC: Denies swollen, enlarged glands. NEUROLOGICAL: Denies confusion or altered mental status. Denies passing out or loss of consciousness. Denies dizziness or lightheadedness. Denies headache. Denies weakness or paralysis or loss of use of either side. Denies problems with gait or speech. Denies sensory loss, numbness, or tingling. Denies seizures. PSYCHIATRIC: Denies anxiety or stress. Denies depression, suicidal ideation, or homicidal ideation. ALL OTHER SYSTEMS REVIEWED AND NEGATIVE. PHYSICAL EXAMINATION: GENERAL: Well-appearing, well-nourished and in mild distress HEAD: Atraumatic, normocephalic. EYES: Pupils equal round and reactive to light, extraocular movements intact, conjunctiva are normal. ENT: Nares patent, oropharynx clear without exudates. Moist mucous membranes. NECK: Normal range of motion, supple without lymphadenopathy LUNGS: Breath sounds clear to auscultation bilaterally and equal. No wheezes rales or rhonchi. HEART: Tachycardic ABDOMEN: Soft, nontender, nondistended abdomen. No guarding, no rebound. No masses appreciated. Female : deferred Musculoskeletal: Normal range of motion, no pitting or edema. No cyanosis. NEUROLOGICAL: Cranial nerves grossly intact. Normal speech, normal gait. Normal sensory, motor exams PSYCH: Normal mood, normal affect. SKIN: Warm, Dry, normal turgor, no rashes or lesions noted. Dictation was performed using [employer] voice recognition software (SIOBHAN ROCKWELL) - Related Data Allergies/Adverse Reactions: latex Adverse Reaction (Mild, Verified 04/15/20 18:53) ITCHING,SWELLING AT SITE OF CONTACT Past Medical History - General Information source: Patient - Social History Smoking Status: Current Every Day Smoker Family History: Reviewed & Not Pertinent Patient has homicidal ideation: No - Past Medical History Cardiac Medical History: Reports: Hx Hypertension Denies: Hx Coronary Artery Disease, Hx Heart Attack Pulmonary Medical History: Reports: Hx Pneumonia Denies: Hx Asthma, Hx Bronchitis, Hx COPD Neurological Medical History: Denies: Hx Cerebrovascular Accident, Hx Seizures Renal/ Medical History: Denies: Hx Peritoneal Dialysis Musculoskeletal Medical History: Reports Hx Arthritis, Reports Hx Fibromyalgia Past Surgical History: Reports: Hx Abdominal Surgery - "Tummy tuck ", Hx Breast Surgery - Breast augmentation, Hx Cholecystectomy - 2020, Hx Hysterectomy, Hx O rthopedic Surgery - Cervical degenerative disc disease repair, Hx Tubal Ligation - Immunizations Hx Diphtheria, Pertussis, Tetanus Vaccination: No <SIOBHAN ROCKWELL - Last Filed: 04/15/20 19:55> Physical Exam - Vital signs Vitals: Temp Pulse Resp BP Pulse Ox 98.1 F 118 H 18 182/117 H 97 04/15/20 18:48 04/15/20 18:48 04/15/20 18:48 04/15/20 18:48 04/15/20 18:48 Course - Laboratory Result Diagrams: 04/15/20 19:45 04/15/20 19:45 <SIOBHAN ROCKWELL - Last Filed: 04/15/20 19:55> - Laboratory Result Diagrams: 04/15/20 19:45 04/15/20 19:45 <JEROD HOLLIS - Last Filed: 04/15/20 22:24> - Re-evaluation Re-evalutation: 04/15/20 22:20 On my evaluation patient is calm, resting quietly, she has no current complaints. Discussed her workup including head CT, labs, and urinary tract infection. Blood pressure is now normal at 117 systolic, vitals otherwise unremarkable. Starting on Keflex, patient is now medically cleared pending mental health evaluation. Patient states understanding and agreement. We have also decided to move the patient to bed 46 for better privacy. (JEROD HOLLIS) - Vital Signs Vital signs: Temp Pulse Resp BP Pulse Ox 98.1 F 85 18 117/79 97 04/15/20 18:48 04/15/20 22:09 04/15/20 18:48 04/15/20 22:09 04/15/20 22:09 - Laboratory Laboratory results interpreted by me: 04/15/20 04/15/20 04/15/20 19:45 19:45 19:45 RBC 5.54 H Hgb 16.4 H Hct 48.6 H RDW 14.2 H ALT 76 H Alkaline Phosphatase 132 H Urine Nitrite POSITIVE H Urine Urobilinogen 2.0 H Ur Leukocyte Esterase TRACE H Salicylates < 1.0 L Acetaminophen < 10 L Discharge <SIOBHAN ROCKWELL - Last Filed: 04/15/20 19:55> <JEROD HOLLIS - Last Filed: 04/15/20 22:24> - Discharge Clinical Impression: Suicidal thoughts Hypertension Qualifiers: Hypertension type: unspecified Qualified Code(s): I10 - Essential (primary) hypertension Condition: Stable Disposition: PSYCH HOSP/UNIT Referrals: NILAM HAMLIN NP [Primary Care Provider] - Follow up as needed
[2020-04-15] MEDS ORDERED: LISINOPRIL 10 MG TABLET PO ONE (19:43)
[2020-04-15 20:03] LABS: ABSOLUTE BASOPHILS # (AUTO) 0.1 10^3/uL (0.0-0.2); ABSOLUTE EOSINOPHILS # (AUTO) 0.1 10^3/uL (0.0-0.6); ABSOLUTE LYMPHOCYTES (AUTO) 2.5 10^3/uL (0.5-4.7); ABSOLUTE MONOCYTES (AUTO) 0.5 10^3/uL (0.1-1.4); ABSOLUTE NEUT (AUTO) 6.8 10^3/uL (1.7-8.2); BASOPHILS % (AUTO) 0.8 % (0-2); EOSINOPHILS % (AUTO) 0.7 % (0-6); HEMATOCRIT 48.6 % (36.0-47.0); HEMOGLOBIN 16.4 g/dL (12.0-15.5); LYMPHOCYTES % (AUTO) 25.2 % (13-45); MEAN CORPUSCULAR HEMOGLOBIN 29.6 pg (27.0-33.4); MEAN CORPUSCULAR HGB CONC 33.8 g/dL (32.0-36.0); MEAN CORPUSCULAR VOLUME 88 fl (80-97); MONOCYTES % (AUTO) 4.8 % (3-13); PLATELET COUNT 240 10^3/uL (150-450); RED BLOOD COUNT 5.54 10^6/uL (3.72-5.28); RED CELL DISTRIBUTION WIDTH 14.2 % (11.5-14.0); SEGMENTED NEUTROPHILS % (AUTO) 68.5 % (42-78); TOTAL CELLS COUNTED % (AUTO) 100 %
[2020-04-15 20:08] LABS: APPEARANCE,URINE SLIGHTLY-CLOUDY; BILIRUBIN,URINE NEGATIVE (NEGATIVE); COLOR,URINE YELLOW; GLUCOSE, URINE NEGATIVE (NEGATIVE); KETONES,URINE NEGATIVE (NEGATIVE); LEUKOCYTE ESTERASE,URINE TRACE (NEGATIVE); NITRITE,URINE POSITIVE (NEGATIVE); PROTEIN,URINE NEGATIVE (NEGATIVE); URINE SPECIFIC GRAVITY 1.021
[2020-04-15 20:14] LABS: ALBUMIN 4.4 g/dL (3.5-5.0); ALKALINE PHOSPHATASE 132 U/L (38-126); ANION GAP 12 (5-19); ASPARTATE AMINO TRANSFERASE 36 U/L (14-36); BILIRUBIN,DIRECT 0.3 mg/dL (0.0-0.4); BILIRUBIN,TOTAL 0.4 mg/dL (0.2-1.3); BLOOD UREA NITROGEN 15 mg/dL (7-20); CALCIUM 9.6 mg/dL (8.4-10.2); CARBON DIOXIDE 25 mmol/L (22-30); CHLORIDE 105 mmol/L (98-107); GLUCOSE 109 mg/dL (75-110); POTASSIUM 4.4 mmol/L (3.6-5.0); TOTAL PROTEIN 7.2 g/dL (6.3-8.2)
[2020-04-15 20:18] LABS: ACETAMINOPHEN < 10 ug/mL (10-30); ALCOHOL < 10 mg/dL (NONE DETECTED); SALICYLATE < 1.0 mg/dL (2.0-20.0)
[2020-04-15 20:20] LABS: URINE BARBITURATES SCREEN NEGATIVE; URINE BENZODIAZEPINES SCREEN NEGATIVE; URINE COCAINE SCREEN NEGATIVE; URINE MARIJUANA (THC) SCREEN NEGATIVE; URINE METHADONE SCREEN NEGATIVE; URINE PHENCYCLIDINE SCREEN NEGATIVE
--- NOTE | 2020-04-15 21:22 | RADIOLOGY REPORT (SQ) ---
EXAM DESCRIPTION: CT HEAD WITHOUT IV CONTRAST COMPLETED DATE/TME: 04/15/2020 19:43 CLINICAL INDICATION: 54-year-old female with hypertension and headache COMPARISON: None. TECHNIQUE: CT brain without contrast. This exam was performed according to our departmental dose optimization program which includes use of automated exposure control, adjustment of the mA and/or kV according to patient size and/or use of iterative reconstruction technique. FINDINGS: The ventricles, sulci, and cisterns are within normal limits. The vizcaino-white matter differentiation is preserved. There is no mass effect, midline shift, intra- or extra-axial fluid collection/acute hemorrhage. The osseous structures are unremarkable. The paranasal sinuses and mastoid air cells are clear. IMPRESSION: No acute intracranial abnormalities.
--- NOTE | 2020-04-15 22:07 | EKG REPORT ---
SEVERITY:- NORMAL ECG - SINUS RHYTHM : Confirmed by: Alessandra Gallagher MD 15-Apr-2020 22:07:25
[2020-04-15] MEDS ORDERED: CEPHALEXIN 500 MG CAPSULE PO ONE (22:18)
[2020-04-16] MEDS ORDERED: FENTANYL 50 MCG/HR PATCH.TD72 TD ONE (05:55)
[2020-04-16] MEDS: CEPHALEXIN 500 MG CAPSULE PO SCH ×2 (10:15→17:16)
[2020-04-16] MEDS ORDERED: ACETAMINOPHEN 325 MG TABLET PO ONE (12:43)
[2020-04-16] MEDS ORDERED: NICOTINE 14 MG/24 HR PATCH.TD24 TD ONE (13:19)
--- NOTE | 2020-04-16 13:31 | PSYCHOLOGICAL NOTE ---
Psych Note - Psych Note Date seen by psych provider: 04/16/20 Time seen by psych provider: 10:33 - Evaluation with patient from [id number]. Psych Note: Patient is a 54 year old female who presented to the Emergency Department last evening via privately owned vehicle/herself for feeling overwhelmed at work, having suicidal ideation with plan to overdose, and previous overdose in 2005. Patient denied taking any kind of action to overdose even when confronted about her amphetamine level being so high and her liver functioning. 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 She commented "I can't keep this pace up, I need another position, or to go back to Private Practice. She identified she talked with her director who cleared her work schedule for a week and said they would work on changes when she returned. Patient reported poor sleep the past 2 months with getting 15 minutes to an hour a night then working all day, and at times being able to catch up on the weekends. She stated she has FMLA for other health issues, often missing 2-3 days a month from work as a result. She noted "the increased stress makes me feel increased physical pain." She reported she sees Dr. Sanches through his outpatient clinic [facility] and not via the [place]. She reported she takes her Adderall (30MG twice a day) as prescribed which is for ADHD/Focus/Pain from Fibromyalgia, the Klonopin (0.5MG, 3 tabs lets at night) says take three but she typically only takes 2 at night for sleep, and admitted she had not taken the Abilify (20MG daily) or Effexor (75MG, 3 tablets daily) in awhile. She stated when she did take the Effexor it was prescribed at 3 tablets bit she typically only took 2 daily. She reported she does have all of these medications at home. She also noted she was additionally prescribed Hydroxyzine for sleep but took it along with the Klonopin (she stated her prescriber said it was okay) not long ago, she overslept, was late to work, so this had her concerned. Patient identified with both the Abilify and Effexor she started at lower doses and worked up to higher doses. She further noted at one time she was on Abilify 30MG daily. She noted she has pain management at [facility], they prescribe the Fentanyl patches for back pain, had neck surgery, and Fibromyalgia. She also noted a history of Migraines with prescribed medication (she could not recall names) from two different doctors. When confronted about recent prescription for Lunesta 2MG at night she stated the doctor who did her MRI prescribed it and she's used it 1-2 times. She commented "I forgot about that." Patient admitted to previous overdose in 2005 and commented "it was a bad time, I was messed up, had a lot going on, that was much worse than now." Patient reported she was hospitalized at [facility] in the past. She denied current suicidal ideation and when asked what changed from last night inot this morning she stated b"exhaustion." She denied drug and alcohol use with exception of smoking a half 0pack of cigarettes per day. Patient stated she did not want to go inpatient, wanted to home where she could rest and think of next plan related to her job. She stated now that she has opened up to her director she needs to be transparent. Patient reported she reached out to people before coming which as mentioned included her director at work, her therapist Carina Arnett whom she has not been regular with recently, her friend Olivia and her daughter who resides in [place]. She stated "they were not aware I was struggling until I reached out." Patient reported a family history of mental health with mother being former alcoholic and dealing with anxiety, and Aunt having alcohol issues and Bipolar, and an Aunt having Paranoid Schizophrenia. Patient was alert and oriented to self, person, place, time and situation. Mood was depressed with flat affect. She denied current suicidal and homicidal ideation, admitted to having thoughts to overdose, denied taking any action, admitted to previous overdose attempt in 2005, and stated what changed from last night into today was she felt she had been exhausted. Patient did not appear to be responding to internal stimuli as evidenced by fair eye contact, answering questions appropriately when addressed, carrying on dialogue conversation, and being engaged in evaluation. Thought processes were linear and organized. Conversational speech was within normal limits for rate, tone and prosody. Intellectual abilities are estimated to be average. Insight, judgment and impulse control were poor as evidenced by being overwhelmed at work (high stress, high burn out job), not getting sleep, and having suicidal ideation with plan to overdose (has in the past, has access to medications). Clinical Presentation: Job burnout- overwhelmed with work load Poor Sleep Depression Suicidal Ideation Medication recommendations made by the psychiatric medication provider Dr. Holley LOCO., includes: Discontinue Klonopin 0.5MG 3 tablets at bedtime for sleep Decrease Adderall to 15MG twice a day for ADHD/focus/energy Add Effexor 37.5MG daily for depression/to increase focus/to increase energy Add Buspar 5MG twice a day for anxiety/calming effect/depression/sleep Add Clonidine 0.1MG at night for sleep When discharged: Klonopin 0.5MG daily as needed for overwhelmed.anxiety at work Try to avoid using both Klonopin and Sleep Medications at night Impression/Plan: Recommendation for 24 Hour Petition for Evaluation. Patient has a high stress/high burnout job-career, she admitted to being overwhelmed with work load, noted suicidal ideation with plan to overdose, has not been taking all medications as prescribed especially the medications that could help with mood/depression, she has access to medications at home as a result, and discrepancy related to natural supports when she first told medical staff no local support but told this clinician she reached out to 4 different people (professional and natural supports). Also there is concern related to medications and need for adjustments to better manage her symptoms. Patient informed to think of plan of care for discharge to include utilizing daughter or friend included in plan and ensure follow up appointments with Dr. Sanches (medication management) and Carina Arnett (therapy). Consulted with Dr. Kamara regarding the management and care of patient. ED Physician in agreement with recommendations.
--- NOTE | 2020-04-16 13:40 | ER Document Report ---
Doctor's Note Notes: 04/16/20 13:38 Progress: Patient in the emergency department since last night and was turned over to my care by EDDIE Dooley. Patient came in with complaints of suicidal ideation without a specific plan in mind. Behavioral health is seen her and they will place her on IVC 24-hour hold and try to optimize her medications. Patient and she states that she feels like she is having some nicotine withdrawal and requests a patch. She also has a little bit of a headache and she was given Tylenol. Will await recommendations for medications for the patient from behavioral health team. We will continue to monitor patient closely. Constitutional: Alert and in no acute distress Cardiac: Regular rate and rhythm no murmurs or rubs. Pulmonology: No wheezing, rhonchi or rales. No respiratory distress Abdomen: Nontender to palpation; no distention.
[2020-04-16] MEDS: VENLAFAXINE HCL 37.5 MG CAP.SR.24H PO SCH (15:03)
[2020-04-16] MEDS: BUSPIRONE HCL 10 MG TABLET PO SCH (17:16)
[2020-04-16] MEDS ORDERED: KETOROLAC TROMETHAMINE 60 MG/2 ML SDV IM ONE (18:54)
[2020-04-16] MEDS ORDERED: CLONIDINE HCL 0.1 MG TABLET PO SCH (22:00)
[2020-04-17] MEDS ORDERED: ACETAMINOPHEN 325 MG TABLET PO ONE (09:49)
--- NOTE | 2020-04-17 09:50 | ER Document Report ---
Doctor's Note Notes: 04/17/20 Rounded on patient. She states that she is doing pretty well. She would like some Tylenol for headache. She also like another nicotine patch. She states that she is feeling better overall. We will await behavioral health to come see the patient and see if that she can go home or she needs further evaluation and treatment today. Spoke with Panda, behavioral health team. She plans to discharge the patient today but she is contacting people for follow-up for appointments. Her ex- spouse who she is good friends with will also help her. Panda plans to discharge the patient. Patient ready for discharge. She will be sent home with BuSpar 5 mg twice daily, clonidine 0.1 mg nightly, and Effexor 37.5 mg daily. Patient agrees with the plan. She is feeling much better. We will discharge her. She is encouraged to return if any worsening symptoms.
[2020-04-17] MEDS: BUSPIRONE HCL 10 MG TABLET PO SCH ×2 (10:39→17:59)
[2020-04-17] MEDS: CEPHALEXIN 500 MG CAPSULE PO SCH ×2 (10:39→17:59)
[2020-04-17] MEDS: VENLAFAXINE HCL 37.5 MG CAP.SR.24H PO SCH (10:39)
--- NOTE | 2020-04-17 14:58 | PSYCHOLOGICAL NOTE ---
Psych Note - Psych Note Date seen by psych provider: 04/17/20 Time seen by psych provider: 10:80 - [id number] Psych Note: Reason for Consult:Suicidal ideation Consent Permissions: Hakeem Norton Daughter [phone]. Fan Pierson, (currently ) [phone] Carol Arnett, therapist [phone] Olivia Morales, Friend in [place] [phone] Patient arrived to [facility] via privately owned vehicle/herself for feeling overwhelmed at work, having suicidal ideation with plan to overdose, and previous overdose in 2005. Clinical Presentation: euthymic mood with congruent affect patient smiling and engaging with clinician Cluster B personality traits are noted Check in conducted with patient: Patient discloses that she is feeling better today and identifies her significant issue with stress from work. She reports that she was "going 90 mph nonstop" until she just could not handle anymore. 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 She continue to report that she rarely has patients that cancel so ends up getting behind on her paperwork. She has been thinking about needing to slow down or possibly even finding a new job if the pace does not change. Patient reports that she is never had insomnia in the past however has noted difficulty sleeping lately. She continue to report that she has gone through the change however she was experiencing extreme hot flash events so her prescriber started her on some hormone medication. She confirms that the medication helps significantly however has been off of it and after some reflection recognizes that her insomnia started after stopping the hormone medication. Patient identifies and provides support network contact information and outpatient mental health provider information. She engages with clinician in discussing the importance of self-care and taking medications as prescribed. Hakeem Norton Daughter [phone]. Patient's daughter lives in [place]. She confirms she would be part of the patient's plan of care; however, she lives in [place] and has not lived with her mother in "a while." She reports the patient has chronic suicidal ideation; "it is like the little boy that cries srinivasan he has thoughts and then she is fine and that she has thoughts and she is fine. I do not know how to tell when she is serious or not because all it takes is the one time." She continue to report that the patient tends to be a "loner" but still receives support from her soon-to-be ex- and "sort of boyfriend" in [place]. She reports the patient has had "many attempts in the past 15 years.. I know when she was with my stepdad, before this stepdad, back when I was in high school, she attempted but I cannot tell you for certain how many times and when she has." She continue report that after speaking with her mother today she states that her mother denies suicidal ideation and stated; "so she says 'I brought myself and so I should get credit' she says she feels like she is being punished for coming in for help." Fan Pierson, (currently ) [phone]; left message Carol Arnett, therapist [phone]; left message Olivia Morales, Friend in [place] [phone]; wrong number Clinician received call back from patient's Fan. He reports that while he no longer lives with the patient he will still try to help in any way possible. He disclosed he met his during a similar event. He reports that he was had of [employer] that she was volunteering at. He assist her in getting help during that time due to suicidal ideation. He continued to report that she is diagnosed bipolar however refuses to acknowledge it and he believes she also has borderline personality disorder. He reports that he is in the local area has no concerns checking in on the patient and if he feels that she is a danger to herself he will not hesitate to ensure she obtains services or comes to the ED. Clinician spoke with Carina Arnett, patient's therapist. She discloses that the patient will go long periods of time when things are good without any contact or appointments however when she does reach out is always when she is already in crisis. She has unfortunately continued this cycle and going on past events once the patient has disclosed her suicidal ideation had reached out for assistance she improves. She confirms the patient did reach out to her and made contact [facility]. She does not have any conc erns with the patient being discharged and confirms she will follow up with the patient. Her next available appointment is Friday. Clinician was able to secure appointment. IVC Criteria per [place] GS 122C Dangerous to others Within the relevant past the individual No has inflicted or attempted to inflict or threatened to inflict serious bodily harm on another AND No that there is a reasonable probability that this conduct will be repeated. OR No has acted in such a way as to create a substantial risk of serious bodily harm to another AND No that there is a reasonable probability that this conduct will be repeated. OR No has engaged in extreme destruction of property AND NO that there is a reasonable probability that this conduct will be repeated. Previous episodes of dangerousness to others, when applicable, may be considered when determining reasonable probability of future dangerous conduct. Clear, cogent, and convincing evidence that an individual has committed a homicide in the relevant past is prima facie evidence of dangerousness to others. Dangerous to self Within the relevant past the individual has done any of the following: acted in such a way as to show ALL of the following: No The individual would be unable without care, supervision, and the continued assistance of others not otherwise available, to exercise self- control, judgment, and discretion in the conduct of the individual's daily responsibilities and social relations or to satisfy the individual's need for nourishment, personal or medical care, [place] [facility], or self-protection and safety. AND No There is a reasonable probability of the individual suffering serious physical debilitation within the near future unless adequate treatment is given. A showing of behavior that is grossly irrational, of actions that the individual is unable to control, of behavior that is grossly inappropriate to the situation, or of other evidence of severely impaired insight and judgment shall create a prima facie inference that the individual is unable to care for himself or herself. OR Yes has attempted suicide or threatened suicide AND No that there is a reasonable probability of suicide unless adequate treatment is given While patient reports suicidal ideation and has a previous attempt back in 2005, patient demonstrates insight and judgment and coming to [facility] for further assistance when identifying concern with increased thoughts. Patient identifies support network and plan of care and provide contact information. Patient does have a history of chronic passive suicidal ideation and identifies this event is not anywhere near as bad as when she actually attempted. Patient has been restarted on medications with adjustments. OR No has mutilated himself or herself or attempted to mutilate himself or herself AND No that there is a reasonable probability of serious self-mutilation unless adequate treatment is given. NOTE: Previous episodes of dangerousness to self, when applicable, may be co nsidered when determining reasonable probability of physical debilitation, suicide, or self-mutilation. Medication recommendations per [facility] contracted psychiatrist are as follows: Discontinue Klonopin 0.5MG 3 tablets at bedtime for sleep Decrease Adderall to 15MG twice a day for ADHD/focus/energy Add Effexor 37.5MG daily for depression/to increase focus/to increase energy Add Buspar 5MG twice a day for anxiety/calming effect/depression/sleep Add Clonidine 0.1MG at night for sleep Impression\\plan: Patient is recommended for rescind of 24 hour petition for evaluation and is cleared from acute psychiatric services. Patient reportedly has has a history of struggling with mood swings and suicidal ideation. Patient has both medication management and therapeutic services. She identifies multiple support network options such as her , daughter, and local friends. Patient's therapist report reports patient has a cycle where she does really well then goes into crisis reports suicidal ideation then improves. She confirms she does not have concerns with the patient being discharged. Patient came in voluntarily reporting suicidal ideation but denying wanting to and want to ensure safety in case of impulsivity. Patient is recommended to follow- up with her outpatient mental health provider. Her mental health provider confirms if the patient is a no-show she will follow up with necessary precautions. Dr. Kamara was consulted to care management of this patient; attending physicians in agreement with recommendations and disposition. Case Management: IVC rescind paperwork is signed and placed in patient's chart Therapy appointment scheduled for Friday04/22/2020 at pm with Carol Arnett
[2020-04-17] MEDS ORDERED: NICOTINE 14 MG/24 HR PATCH.TD24 TD ONE (15:28)
[2020-04-17 18:27] VITALS: BP 162/83
== END 2020-04-17 18:30 | disposition home or self-care (01) ==
LOC: ER 18:43
DX: R45.851 Suicidal ideations (principal); G43.909 Migraine, unspecified, not intractable, without status migrainosus; N30.00 Acute cystitis without hematuria; F17.200 Nicotine dependence, unspecified, uncomplicated; I10 Essential (primary) hypertension; Z90.49 Acquired absence of other specified parts of digestive tract
CPT/HCPCS: 93005; 99285; 96372; 36415; 87086; 80307 ×4; 85025; 87088; 80053; 81001; 87186; 70450; 93010; J1885; J3490 ×3; S0119